=== PATIENT | female | born 1940 | race Caucasian/White ===

== ENCOUNTER 2023-11-02 21:08 | Emergency (ER) | payer MEDICARE ==
[~2023-11-02] VITALS: Ht 157.5 cm; Wt 58.5 kg
[2023-11-02] MEDS ORDERED: LIDOCAINE /MPF 1% VIAL 5 ML VIAL ONE (22:08)
[2023-11-02] MEDS ORDERED: TDAP [DIPH/PERTUSSIS/TET] 0.5 ML VIAL IM ONE (22:09)
[2023-11-02] MEDS: LIDOCAINE /MPF 1% VIAL 5 ML VIAL TP ONE (22:26)
[2023-11-02] MEDS: TDAP [DIPH/PERTUSSIS/TET] 0.5 ML VIAL IM ONE (22:26)
[2023-11-03 00:10] VITALS: BP 135/95; TEMP 98.6; O2SAT 97
== END 2023-11-03 00:10 | disposition home or self-care (01) ==
LOC: ER 21:13
DX: S01.01XA Laceration without foreign body of scalp, initial encounter (principal); R51.9 Headache, unspecified; Z88.2 Allergy status to sulfonamides; Z91.040 Latex allergy status; W18.39XA Other fall on same level, initial encounter; Y93.89 Activity, other specified; Y92.89 Other specified places as the place of occurrence of the external cause; Y99.8 Other external cause status
CPT/HCPCS: 12002; 70450; 90471; 90715; 99285; A6403; J3490